=== PATIENT | male | born 1945 | race Caucasian/White ===

== ENCOUNTER 2019-07-08 18:38 | Observation (INO) ==
[2019-07-08] MEDS ORDERED: ALUMINUM/MAGNESIUM SUSP 30 ML UDC PO STA (18:51)
[2019-07-08] MEDS ORDERED: ASPIRIN CHEW 324 MG PO STA (18:51)
--- NOTE | 2019-07-08 19:30 | XRay Report ---
XR chest 1V portable CLINICAL HISTORY: Chest pain. COMPARISON STUDY: Chest radiograph August 05, 2010. FINDINGS: Mild elevation of the right hemidiaphragm is noted. There is no pneumothorax or pleural eff usion. Note is made of moderate cardiomegaly without evidence for pulmonary edema. A chondroid lesion within the proximal shaft of the right humerus is partially imaged on this exam but statistically re flects an enchondroma. IMPRESSION: 1. No acute findings. 2. Moderate cardiomegaly. ACT 112: Negative or not required by law. Electronically signed by: Afshin Murray M.D. 07/08/2019 7:29 PM
[2019-07-08 19:35] LABS: Basophils # (auto) 0.05 K/uL (0-0.2); Basophils % (auto) 0.9 %; Eosinophils # (auto) 0.29 K/uL (0-0.5); Hematocrit (blood only) 44.6 % (42-52); Lymphocytes % (auto) 22.5 %; Mean Corpuscular Hemoglobin 27.1 pg (25-34); Mean Corpuscular Hgb Conc 33.6 g/dL (32-36); Mean Corpuscular Volume 80.5 fL (80-100); Mean Platelet Volume 10.2 fL (7.4-10.4); Monocytes # (auto) 0.37 K/uL (0.11-0.59); Monocytes % (auto) 6.4 %; Neutrophils # (auto) 3.76 K/uL (1.4-6.5); Neutrophils % (auto) 65.2 %; Platelet Count 213 K/uL (130-400); RDW Coefficient of Variation 14.2 % (11.5-14.5); RDW Standard Deviation 41.7 fL (36.4-46.3); Red Blood Count 5.54 M/uL (4.7-6.1); White Blood Count 5.77 K/uL (4.8-10.8)
[2019-07-08 19:46] LABS: INR 2.7 (0.9-1.1); Partial Thromboplastin Ratio 1.4; Partial Thromboplastin Time 37.1 Seconds (21.0-31.0); Prothrombin Time 25.8 Seconds (9.0-12.0)
[2019-07-08 19:53] LABS: Alanine Aminotransferase 25 U/L (12-78); Albumin Level 3.9 gm/dl (3.4-5.0); Aspartate Aminotransferase 24 U/L (15-37); BUN Creatinine Ratio 19.5 (10-20); Blood Urea Nitrogen 22 mg/dl (7-18); Carbon Dioxide 27 mmol/L (21-32); Chloride 106 mmol/L (98-107); Creatinine Clr Calc Pharmacy 61.5 ml/min; Est GFR (African American) 74.8; Est GFR (Non-African American) 64.6; Glucose 92 mg/dl (70-99); Lipase 91 U/L (73-393); Potassium 3.7 mmol/L (3.5-5.1); Sodium 139 mmol/L (136-145)
[2019-07-08 19:58] LABS: Albumin Globulin Ratio 1.1 (0.9-2); Alkaline Phosphatase 52 U/L (45-117); Bilirubin,Total 0.7 mg/dl (0.2-1); Globulin 3.6 gm/dl (2.5-4.0); Total Protein 7.5 gm/dl (6.4-8.2); Troponin I < 0.015 ng/ml (0-0.045)
[2019-07-08 20:12] LABS: Appearance Urine Clear (Clear); Bilirubin Urine Negative (Negative); Blood Urine Negative (Negative); Color Urine Yellow; Glucose Urine UA Negative (Negative); Ketones Urine Negative (Negative); Leukocyte Esterase Urine Negative (Negative); Nitrite Urine Negative (Negative); Protein Urine Negative (Negative); Specific Gravity Urine 1.006 (1.000-1.030); Urobilinogen Urine Negative (Negative); pH Urine 7.5 (4.5-7.5)
[2019-07-08] MEDS ORDERED: PHYTONADIONE 5 MG TAB PO STA ×2 (20:28→20:33)
[2019-07-08] MEDS ORDERED: METOPROLOL TARTRATE 1 MG/ML VIAL IV STA (20:33)
--- NOTE | 2019-07-08 20:35 | Emergency Department Note ---
Entered by Carolyn Mcclendon acting as a scribe for Shane Chiang DO History of Present Illness General Chief complaint: Chest Pain Stated complaint: HEADACHE, CHEST PAIN- CARDIAC HX Time Seen by Provider: 07/08/19 18:46 Source: patient History of Present Illness Provider complaint: chest pain Onset (ago): hour(s) 3 Location: chest (mid) Pain Consistency: + intermittent Maximum Pain Intensity: 1 Quality: + other (pressure) Associated symptoms: + headaches, + nausea/vomiting (+nausea, -vomiting) and + other (-neck pain); no cough and no shortness of breath Treatments prior to arrival: other (Coumadin) The patient is a 73 year old male who presents to the Emergency Room with complaints of mid chest pain for the past 3 hours. He notes that was not doing anything when the pain started. He reports that he has a headache. He mentions that he has nausea. He denies any vomiting, coughing, or shortness of breath. He reports that he took Coumadin prior to arrival. The patient reports that his pain is intermittent and does not have it currently. He mention that the pain feels like a pressure. He denies any neck pain. He denies past MIs. He reports that he had a stress test last week. He reports that he has a history of a heart catheterization. Home Medications Home Medications Medication Instructions Recorded Confirmed Type acetaminophen [Tylenol Extra 1,000 mg PO Q6H PRN 07/08/19 07/08/19 History Strength] ezetimibe [Zetia] 10 mg PO DAILY 07/08/19 07/08/19 History hydrochlorothiazide 12.5 mg PO DAILY 07/08/19 07/08/19 History warfarin 5 mg PO Q OTHER DAY 07/08/19 07/08/19 History warfarin 7.5 mg PO Q OTHER DAY 07/08/19 07/08/19 History Allergies Allergy/AdvReac Type Severity Reaction Status Date / Time ibuprofen Allergy . Unverified 07/08/19 20:53 Past Med/Surg History Medical History No significant medical problems Social History Feels Safe at Home: Yes Smoking Status: Current every day smoker Review of Systems See HPI for pertinent positives & negatives. and A total of 10 systems reviewed and were otherwise negative Physical Exam Vital Signs Vital Signs - 24 hr 07/08/19 18:40 07/08/19 20:52 07/08/19 21:06 Temperature 36.8 C Temperature Source Oral Pulse Rate 90 Pulse Rate [Right Finger] 66 Respiratory Rate 20 20 Respiratory Depth Normal Blood Pressure 204/88 H Blood Pressure [Right Arm] 169/60 H Blood Pressure Mean 126 Blood Pressure Mean [Right Arm] 96 Pulse Oximetry 98 95 95 Oxygen Delivery Method Room Air Room Air Room Air Sepsis Recent Fever Within 48 Hours No Sepsis New/Unexplained Change in Mental Status No Sepsis Action Taken by Nursing No Action Required GENERAL: Patient is awake, alert, and in no acute distress.Patient is resting comfortably and showing no signs of anxiety EYES: The conjunctivae are clear. The pupils are round and reactive. EARS, NOSE, MOUTH AND THROAT: The nose is without any evidence of any deformity. Mucous membranes are moist.Tongue is midline NECK: The neck is nontender and supple. RESPIRATORY: Normal respiratory effort is noted. There is no evidence of wheezing rhonchi or rales to auscultation. CARDIOVASCULAR: Regular rate and rhythm noted. Systolic murmur. There no rubs or gallops normal S1 normal S2 GASTROINTESTINAL: The abdomen is soft. Bowel sounds are present in all quadrants. Abdomen is nontender. MUSCULOSKELETAL/EXTREMITIES: There is no evidence of gross deformity. Full range of motion is noted in the hips and shoulders. SKIN: There is no obvious evidence of any rash. There are no petechiae, pallor or cyanosis noted. NEUROLOGIC: Patient is awake alert and oriented x3. Course Course 184: The patient was evaluated in room C12A, and a complete history and physical examination were performed. 2026: I discussed the patient's case with Dr. Obrien- [facility] Cardiology, he recommends that the patient have partial Coumadin reversal and admission with catheterization within the next 24 hours. 2032: I reviewed the patient's case with Dr. Marin- [facility] Hospitalist. He will evaluate the patient for further management. Administered Medications Discontinued Medications Al Hydrox/Mg Hydrox/Simethicone (Maalox) 30 ml PO NOW STA Stop: 07/08/19 18:52 Last Admin: 07/08/19 19:46 Dose: 30 ml Documented by: [id number] Aspirin (Aspirin) 324 mg PO NOW STA Stop: 07/08/19 18:52 Last Admin: 07/08/19 19:46 Dose: 324 mg Documented by: [id number] Metoprolol Tartrate (Lopressor) 5 mg IV NOW STA Stop: 07/08/19 20:34 Last Admin: 07/08/19 20:52 Dose: 5 mg Documented by: [id number] Phytonadione (Mephyton) 2.5 mg PO NOW STA Stop: 07/08/19 20:29 Last Admin: 07/08/19 20:51 Dose: 5 mg Documented by: [id number] Phytonadione (Mephyton) 2.5 mg PO NOW STA Stop: 07/08/19 20:34 Last Admin: 07/08/19 20:52 Dose: Not Given Documented by: [id number] Medical Decision Making Differential Diagnosis Differential diagnosis: Etiologies such as cardiac ischemia, aortic dissection, pulmonary embolism, pneumonia, pneumothorax, musculoskeletal, infections, pericarditis, myocarditis, esophageal rupture, gastrointestinal, as well as others were entertained Medical Records Attestation: I reviewed the patient's medical records. Home Medications Current Medication List: was personally reviewed by me Laboratory Data Attestation: I reviewed the patient's lab results. Result diagrams: 07/08/19 19:25 07/08/19 19:25 Lab Results 07/08/19 07/08/19 07/08/19 Range/Units 19:25 19:25 19:25 WBC 5.77 (4.8-10.8) K/uL RBC 5.54 (4.7-6.1) M/uL Hgb 15.0 (14.0-18.0) g/dL Hct 44.6 (42-52) % MCV 80.5 (80-100) fL MCH 27.1 (25-34) pg MCHC 33.6 (32-36) g/dL RDW Std Deviation 41.7 (36.4-46.3) fL RDW Coeff of Stephanie 14.2 (11.5-14.5) % Plt Count 213 (130-400) K/uL MPV 10.2 (7.4-10.4) fL Immature Gran % (Auto) 0.0 % Neut % (Auto) 65.2 % Lymph % (Auto) 22.5 % Woodson % (Auto) 6.4 % Eos % (Auto) 5.0 % Baso % (Auto) 0.9 % Immature Gran # (Auto) 0.00 (0.00-0.02) K/uL Neut # (Auto) 3.76 (1.4-6.5) K/uL Lymph # (Auto) 1.30 (1.2-3.4) K/uL Woodson # (Auto) 0.37 (0.11-0.59) K/uL Eos # (Auto) 0.29 (0-0.5) K/uL Baso # (Auto) 0.05 (0-0.2) K/uL PT 25.8 H (9.0-12.0) Seconds INR 2.7 H (0.9-1.1) APTT 37.1 H (21.0-31.0) Seconds PTT Ratio 1.4 Sodium 139 (136-145) mmol/L Potassium 3.7 (3.5-5.1) mmol/L Chloride 106 (98-107) mmol/L Carbon Dioxide 27 (21-32) mmol/L Anion Gap 6.0 (3-11) BUN 22 H (7-18) mg/dl Creatinine 1.13 (0.6-1.4) mg/dl Est Cr Clr Drug Dosing 61.5 ml/min Est GFR ( Amer) 74.8 Est GFR (Non-Af Amer) 64.6 BUN/Creatinine Ratio 19.5 (10-20) Glucose 92 (70-99) mg/dl Calcium 9.0 (8.5-10.1) mg/dl Total Bilirubin 0.7 (0.2-1) mg/dl AST 24 (15-37) U/L ALT 25 (12-78) U/L Alkaline Phosphatase 52 (45-117) U/L Troponin I < 0.015 (0-0.045) ng/ml Total Protein 7.5 (6.4-8.2) gm/dl Albumin 3.9 (3.4-5.0) gm/dl Globulin 3.6 (2.5-4.0) gm/dl Albumin/Globulin Ratio 1.1 (0.9-2) Lipase 91 (73-393) U/L Urine Color Urine Appearance (Clear) Urine pH (4.5-7.5) Ur Specific Narberth (1.000-1.030) Urine Protein (Negative) Urine Glucose (UA) (Negative) Urine Ketones (Negative) Urine Blood (Negative) Urine Nitrite (Negative) Urine Bilirubin (Negative) Urine Urobilinogen (Negative) Ur Leukocyte Esterase (Negative) 07/08/19 Range/Units 20:04 WBC (4.8-10.8) K/uL RBC (4.7-6.1) M/uL Hgb (14.0-18.0) g/dL Hct (42-52) % MCV (80-100) fL MCH (25-34) pg MCHC (32-36) g/dL RDW Std Deviation (36.4-46.3) fL RDW Coeff of Stephanie (11.5-14.5) % Plt Count (130-400) K/uL MPV (7.4-10.4) fL Immature Gran % (Auto) % Neut % (Auto) % Lymph % (Auto) % Woodson % (Auto) % Eos % (Auto) % Baso % (Auto) % Immature Gran # (Auto) (0.00-0.02) K/uL Neut # (Auto) (1.4-6.5) K/uL Lymph # (Auto) (1.2-3.4) K/uL Woodson # (Auto) (0.11-0.59) K/uL Eos # (Auto) (0-0.5) K/uL Baso # (Auto) (0-0.2) K/uL PT (9.0-12.0) Seconds INR (0.9-1.1) APTT (21.0-31.0) Seconds PTT Ratio Sodium (136-145) mmol/L Potassium (3.5-5.1) mmol/L Chloride (98-107) mmol/L Carbon Dioxide (21-32) mmol/L Anion Gap (3-11) BUN (7-18) mg/dl Creatinine (0.6-1.4) mg/dl Est Cr Clr Drug Dosing ml/min Est GFR ( Amer) Est GFR (Non-Af Amer) BUN/Creatinine Ratio (10-20) Glucose (70-99) mg/dl Calcium (8.5-10.1) mg/dl Total Bilirubin (0.2-1) mg/dl AST (15-37) U/L ALT (12-78) U/L Alkaline Phosphatase (45-117) U/L Troponin I (0-0.045) ng/ml Total Protein (6.4-8.2) gm/dl Albumin (3.4-5.0) gm/dl Globulin (2.5-4.0) gm/dl Albumin/Globulin Ratio (0.9-2) Lipase (73-393) U/L Urine Color Yellow Urine Appearance Clear (Clear) Urine pH 7.5 (4.5-7.5) Ur Specific Narberth 1.006 (1.000-1.030) Urine Protein Negative (Negative) Urine Glucose (UA) Negative (Negative) Urine Ketones Negative (Negative) Urine Blood Negative (Negative) Urine Nitrite Negative (Negative) Urine Bilirubin Negative (Negative) Urine Urobilinogen Negative (Negative) Ur Leukocyte Esterase Negative (Negative) Imaging Data Radiologist's Impression: Radiology results as stated below per my review and the radiologist's interpretation: XR chest 1V portable CLINICAL HISTORY: Chest pain. COMPARISON STUDY: Chest radiograph August 05, 2010. FINDINGS: Mild elevation of the right hemidiaphragm is noted. There is no pneumothorax or pleural effusion. Note is made of moderate cardiomegaly without evidence for pulmonary edema. A chondroid lesion within the proximal shaft of the right humerus is partially imaged on this exam but statistically reflects an enchondroma. IMPRESSION: 1. No acute findings. 2. Moderate cardiomegaly. ACT 112: Negative or not required by law. Electronically signed by: Afshin Murray M.D. 07/08/2019 7:29 PM ECG Data Attestation: I personally reviewed and interpreted this ECG as follows: Indication: + chest pain Rate (beats per minute): 86 Rhythm: + sinus rhythm ECG Intervals/blocks: + First degree AV block ECG ST segments: + ST depression (lateral ) ECG Findings: + LVH (voltage criteria) Comparison ECG Date: from (08/05/10) Change: no significant change Blood Pressure Blood Pressure Findings: Elevated blood pressure Blood Pressure Disposition: further management by hospitalist NORBERT Emerson The patient is a 73-year-old male who presented to the emergency department for an evaluation of chest pain. The patient had left-sided chest pain which she described as a pressure. The pain was nonexertional in nature. The patient was found to have EKG changes on his initial twelve-lead which appear to be consistent with his previous EKG. The ST segment depression does appear somewha t increased and his blood pressure was elevated in the emergency department. Patient was treated with aspirin Lopressor and vitamin K in the emergency department. I discussed the patient's laboratory and radiographic studies with him. He was feeling much better on subsequent reevaluation. I discussed his case with his primary cardiology group. Given the patient's ongoing symptoms and the fact that he is scheduled for an upcoming cardiac catheterization they did recommend that we keep the patient for further work-up including serial troponins. I discussed this case with the on-call [facility] hospitalist group. They have agreed to evaluate the patient in the emergency department for further management and disposition. I discussed this with the patient and he was agreeable with the plan at this time. Impression & Plan Chest pain, Abnormal EKG, Aortic stenosis Discharge Plan Visit Data *Final* Discharge Date/Time: 07/08/19 22:14 Chief Complaint: Chest Pain Stated Complaint: HEADACHE, CHEST PAIN- CARDIAC HX ED Provider: Shane Chiang Discharge Problem: Chest pain, Abnormal EKG, Aortic stenosis Patient Disposition: Admitted As Inpatient Discharge Instructions Interventions: ED Discharge Assessment Last Done: 07/08/19 22:14 Discharge Problem: Chest pain Qualifiers: Chest pain type: unspecified Qualified Code(s): R07.9 - Chest pain, unspecified Aortic stenosis Qualifiers: Cardiac valve disease etiology: etiology unspecified Qualified Code(s): I35.0 - Nonrheumatic aortic (valve) stenosis The scribe's documentation has been prepared under my direction and personally reviewed by me in its entirety. I confirm that the note above accurately reflects all work, treatment, procedures, and medical decision making performed by me.
[2019-07-08] MEDS ORDERED: ACETAMINOPHEN 325 MG TAB PO PRN (22:40)
[2019-07-08] MEDS ORDERED: NITROGLYCERIN SL 0.4 MG/TAB TAB SL PRN (22:40)
[2019-07-08] MEDS ORDERED: ONDANSETRON INJ 2 MG/ML 2 ML VIAL IV PRN (22:40)
[2019-07-08] MEDS ORDERED: POLYETHYLENE (MIRALAX) 17 GM PACK PO PRN (22:40)
--- NOTE | 2019-07-09 02:31 | History and Physical Report ---
DATE OF ADMISSION: 07/08/2019 CHIEF COMPLAINT: Chest pain. HISTORY OF PRESENT ILLNESS: This is a 73-year-old male with past medical history significant for hyperlipidemia, statin intolerance, hypertension, history of TIA, history of rheumatic heart disease with borderline severe aortic stenosis, moderate aortic regurgitation, moderate mitral stenosis on Coumadin, presents with chest pain. The patient had a recent echocardiogram with normal EF. His left heart catheterization in August 2011 showed mild nonobstructive CAD, recent Lexiscan nuclear stress test on 12/08/2018 was unremarkable. There is plan for elective cardiac catheterization for possible valve surgery. The patient states since coming from the work today around 4-4:30 p.m., he noticed mild chest discomfort, in the left side of the chest, pressure like feeling, nonradiating, not associated with any activity. No sweating. Has some mild pressure in the head, no nausea, no sweating, no shortness of breath. The patient sates currently pain is resolved. EKG, no acute changes and troponins negative, but because of his underlying valvular disease, the plan to get admitted and cardiac catheterization in a.m. Currently resting comfortably and hemodynamically stable. Denies any blurred vision, no earache, no runny nose, no sore throat. Appetite is okay. No difficulty swallowing. Sleeps okay. No orthopnea, no shortness of breath, no nausea, no abdominal pain. Normal bowel and bladder movements. No hematuria, no burning micturition, no melena, no hematochezia, no swelling in the legs, no rash. Otherwise, he is active and ambulates and climbs steps okay. Lives with his . ALLERGIES: IBUPROFEN. PAST MEDICAL HISTORY: As mentioned above. PAST SURGICAL HISTORY: Left heart catheterization, colonoscopy, incision of anal sphincter, maxillary sinus and nasal endoscopy. MEDICATIONS: Coumadin 7.5 mg on Sundays and and 5 mg rest of the days, Zetia 10 mg p.o. daily, Zantac 300 mg p.o. at bedtime, hydrochlorothiazide 12.5 mg p.o. daily. FAMILY HISTORY: Significant for father of [place] at age 54, mother good health at age of 84. Sister of [place] at age of 63. SOCIAL HISTORY: and lives with his . Smokes 5 cigarettes a day. Alcohol 1-2 times a month. No drug use. REVIEW OF SYMPTOMS: As per HPI. Rest of review of symptoms negative. PHYSICAL EXAMINATION: GENERAL: The patient is of moderate build, not in acute distress. VITAL SIGNS: Temperature 36.8, pulse 66, respiratory rate 20, blood pressure 116/60, oxygen 95% room air. HEENT: No pallor, no icterus. Pupils equal, round, reactive to light. NECK: No JVD, no neck mass, no carotid bruit. CARDIOVASCULAR: S1, S2 heard, regular rate and rhythm, no murmur, no gallop. RESPIRATORY SYSTEM: Normal AP diameter. No accessory muscle use. No wheezing, no crackles. ABDOMEN: Soft, bowel sounds present, nontender. No distention. CENTRAL NERVOUS SYSTEM: Cranial nerves II-XII grossly intact. Nonfocal. EXTREMITIES: No edema, no erythema. LABORATORY DATA: WBC 5.7, hemoglobin 15, hematocrit 44.6, platelets 213, PT 37.1, INR 2.7, APTT 37.1. Sodium 137 , potassium 3.7, chloride 106, bicarbonate 27, BUN 22, creatinine 1.13, serum glucose 92, calcium 9, total bilirubin 0.7, AST 24, ALT 25, alkaline phosphatase is 52. Troponin I less than 0.015. Lipase 91. Chest x-ray: No acute findings, moderate cardiomegaly. EKG: Sinus rhythm with first degree AV block at a rate of 86. Left ventricular hypertrophy,no significant change from previous EKG. ASSESSMENT AND PLAN: This is a 73-year-old male who presents with chest pain. 1. Chest pain, rule out acute coronary syndrome. Initial workup is negative. Will admit to tele floor. Serial cardiac enzymes. There is a planned for elective cardiac catheterization for his valvular heart disease. Plan to do cardiac catheterization in a.m. We will keep him n.p.o. after midnight. Cardiology consult in a.m. for cardiac catheterization. 2. Rheumatic heart disease with borderline severe aortic stenosis, moderate aortic regurgitation, moderate mitral stenosis. We will monitor him for volume overload. Currently stable. 3. Hypertensive urgency could be situational. Continue on hydrochlorothiazide, placed on IV Lopressor. Monitor the blood pressure. 4. History of questionable paroxysmal atrial fibrillation and history of transient ischemic attack in the past, on Coumadin. His INR is 2.7, given vitamin K in ER for cardiac catheterization in a.m. Will follow INR. 5. History of mild ascending thoracic aneurysm, needs followup. 6. History of tobacco abuse, needs counseling. 7. Hyperlipidemia, statin intolerance, on Zetia. 8. Deep venous thrombosis prophylaxis, sequential compression devices for now. 9. Disposition: Admit to tele floor. Expect to discharge home and follow with family doctor. Level 1 full code. MTDD
[2019-07-09 05:06] LABS: INR 2.8 (0.9-1.1); Prothrombin Time 26.4 Seconds (9.0-12.0)
[2019-07-09] MEDS ORDERED: PHYTONADIONE 2.5 MG in SODIUM CHLORIDE 0.9% 50 ML IV ONE (05:57)
[2019-07-09] MEDS ORDERED: EZETIMIBE 10 MG TABLET PO SCH (09:00)
[2019-07-09] MEDS ORDERED: hydroCHLOROthiazide 25 MG TAB PO SCH (09:00)
--- NOTE | 2019-07-09 09:03 | Cardiology Consultation ---
Date of Consultation July 09, 2019 Assessment & Plan (1) Rheumatic aortic stenosis with insufficiency: (2) Rheumatic mitral and aortic valve obstruction: (3) Anxiety about health: (4) Chest pain: (5) HTN (hypertension): (6) Paroxysmal atrial fibrillation: 73-year-old patient with history of rheumatic aortic and mitral valve disease with most recent echocardiogram demonstrating aortic stenosis. Patient presents to the hospital with atypical chest discomfort, elevated blood pressu re, and headache. Notes significant stress/anxiety related to upcoming cardiac catheterization. No evidence of acute coronary syndrome or symptomatic dysrhythmia overnight. Currently patient is asymptomatic with mildly elevated resting blood pressure, however, continues to note significant stress associated with his health issues. And temporary prescription of benzodiazepines to aid with anxiety management. His INR remains 2.8 despite treatment with vitamin K. Recommend holding Coumadin at this time. Cardiac catheterization initially scheduled for July 14, however, I will reschedule for 07/12/2019. Risks of procedure reviewed. Plan for CT surgery evaluation/consultation pending results of cardiac catheterization. Discussed discharge to home versus continued observation over the weekend pending cardiac catheterization Friday. Patient prefers to return home with cardiac catheterization on Friday as an outpatient. Agreeable to return to the hospital with any recurrent symptoms. History of Present Illness Reason for Consultation: Chest pain, valvular heart disease Requesting Physician: Dr. Marin Attending Physician: Renetta Leiva MD History of Present Illness 73-year-old patient presented to the emergency department with chest discomfort. History of rheumatic heart disease with recent echocardiogram demonstrating severe aortic insufficiency, severe aortic stenosis, moderate mitral stenosis, and mild pulmonary hypertension. Patient scheduled for left and right heart catheterization next week. 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 On his ride home he became worried about his upcoming procedure developed a headache and a feeling of fogginess. Per direction of his family he came to the emergenc y department. Noted to be markedly hypertensive in the ER with admitted anxiety. Cardiac enzymes unremarkable without ischemic ECG changes. Patient was given 5 mg of oral vitamin K in anticipation of possible cardiac catheterization today. Unfortunately his INR remains elevated. He rested comfortably over night with mild improvement of blood pressure. This morning again he is feeling anxious without chest pain or headache. No dysrhythmias on telemetry. Denies orthopnea, PND, palpitations, lightheadedness, dizziness, syncope, or near syncope. 2D echocardiogram results 06/25/2019: The examination is adequate to evaluate the referral indication. The left ventricular cavity size is normal. The LV wall thickness is moderately increased (concentric). The left ventricular wall motion is normal. Qualitative LV ejection Fraction = 60%. The left ventricular diastolic function is mildly abnormal (grade I). The left atrium is severely enlarged (>48 ml/m^2,). The aortic valve has three leaflets. The aortic valve is mildly calcified. Severe aortic valve stenosis is assumed to be present however, the gradients across the valve and the calculations of valve area maybe impacted by the severe AI. Peak instantaneous pressure gradient across the aoric valve is approximately 65 mmHg, with mean gradient 37 mmHg. Calculated aortic valve orifice area is approximately 1 cm2. Aortic valvular insufficiency is present, which appears to be severe. The aortic root is normal sized. The proximal ascending thoracic aorta is mildly enlarged. The estimated pulmonary artery systolic pressure is 46mm Hg. There is moderate mitral annular calcification. The mitral valve leaflets thickness is moderately increased. The mitral valve leaflets are moderately calcified. The mitral valve leaflet mobility is moderately reduced. Moderate mitral stenosis is present. Mild mitral regurgitation is present. Compared to previous study dated 12/29/2018, severity of aortic valve stenosis has progressed, and is now severe. Estimated pulmonary artery systolic pressure has increased from 36 to 46 mmHg. Diameter of ascending aorta is stable. 2D echocardiogram report 12/2018: The qualitative LV ejection fraction is 60-64% (normal). The LV wall thickness is moderately increased (concentric). The left atrium is severely enlarged. The aortic valve is mildly calcified. Moderate to borderline severe aortic stenosis is present. The mitral valve abnormalities are due to rheumatic heart disease. Aortic regurgitation is present, possibly severe but not quantitated. Moderate mitral stenosis is present. Mild mitral regurgitation is present. Mild tricuspid regurgitation is present. The estimated pulmonary artery systolic pressure is 36mm Hg. Compared to last available study changes are noted as follows: Aortic valve systolic gradients have increased. Lexiscan nuclear stress test report December 08, 2018: Myocardial perfusion imaging is normal. Overall left ventricular systolic function was normal without regional wall motion abnormalities. The left ventricular ejection fraction was 63%. There are no prior studies available for comparison. Allergies Allergy/AdvReac Type Severity Reaction Status Date / Time ibuprofen Allergy . 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 Surgical History S/P cardiac catheterization Social History Preferred Language: [place] Communication Ability: Effective Water Proofer Required: No Beliefs That Will Affect Care: None Current Living Situation: Family Other Information That Helps Us Care for You: No Feels Safe at Home: Yes Safety Concerns: Feels Safe At This Time Smoking Status: Current every day smoker Tobacco Type: cigarettes ; Tobacco Cessation Education Requested by Patient: No Hx Alcohol Use: No Hx Substance Use: No Review of Systems Review of Systems: All systems reviewed & are unremarkable except as noted in HPI & below Physical Exam Constitutional: well developed, well nourished and average body habitus; no acute distress ENMT: Ears: no hearing impairment Respiratory: normal respiratory effort, lungs clear to auscultation Cardiovascular: Heart Sounds: normal S1, normal S2 (Diminished S2) and + murmur (3/6 high-pitched late peaking systolic ejection murmur heard best at the right second intercostal space however audible throughout the precordium. 2/6 diastolic murmur heard best at the left sternal border.) Vessels: + carotid bruit, femoral pulses present and radial pulses present; no JVD Extremities: no pedal edema and no edema Gastrointestinal (Abdomen): Inspection/Auscultation: abdomen normal to inspection and normal bowel sounds; abdomen not distended Percussion/Palpation: abdomen soft; abdomen nontender, no guarding and abdomen not rigid Musculoskeletal: no cyanosis or clubbing, extremities motor strength 5/5 Skin: no rashes, warm and dry Neurologic: CN's II-XI intact bilaterally and moves all extremities; no focal motor deficits Speech / Cognition: normal speech Results & Data Vital Signs (Past 12 Hours) Vital Signs Temp Pulse Resp BP BP Pulse Ox 07/09/19 07:56 36.5 C 57 L 19 176/70 H 98 07/09/19 03:15 36.5 C 54 L 18 147/63 H 97 07/08/19 23:49 60 156/65 H 07/08/19 22:30 36.4 C L 60 18 185/67 H 98 07/08/19 21:06 95 (1) Chest pain Chest pain type: unspecified Qualified Code(s): R07.9 - Chest pain, unspecified (2) HTN (hypertension) Hypertension type: essential hypertension Qualified Code(s): I10 - Essential (primary) hypertension
[2019-07-09] MEDS ORDERED: LORazepam 0.5 MG TAB PO PRN (09:52)
[2019-07-09] MEDS ORDERED: LORazepam 0.5 MG TAB PO ONE (10:15)
--- NOTE | 2019-07-09 11:02 | Hospitalist Progress Note ---
Date of Service July 09, 2019 Assessment & Plan (1) Chest pain: Admitted with chest pain, dyspnea on exertion, symptom has resolved completely, serial cardiac markers negative, appreciate input from cardiology Patient's INR remains elevated 2.8 in spite of given p.o. vitamin K in the ER Elective cardiac cath canceled today, patient is stable to be discharged home Scheduled for cardiac catheter [facility] on 07/12/2019 Patient is asked not to take Coumadin till cardiac cath on Friday Hypertension: BP was elevated, earlier possible secondary to anxiety induced Patient's home medication hydrochlorothiazide resumed Repeat blood pressure improved SBP in 140s, Stable to be discharged home today (2) Rheumatic aortic stenosis with insufficiency: History of rheumatic heart disease with recent echocardiogram demonstrating severe aortic insufficiency, severe aortic stenosis, moderate mitral stenosis, and mild pulmonary hypertension: Noted in recent echocardiogram on 06/25/2019 Patient was scheduled for left and right heart catheterization next week: 07/14/2019 Admitted with dyspnea on exertion, Symptom has resolved, Appreciate input from cardiology, Able to be discharged home, no change in medication, Coumadin will be kept on hold till cardiac cath procedure on Friday (3) Rheumatic mitral and aortic valve obstruction: Discussion as above (4) Paroxysmal atrial fibrillation: With prior history of TIA Has been on Coumadin, INR therapeutic 2.7, given vitamin K in the ER for cardiac cath today, Repeat INR 2.8, Patient will be discharged home today, with scheduled cardiac cath on 07/12/2019 Patient is asked not to take Coumadin till cardiac cath (5) Anxiety about health: Given low-dose Ativan by cardiology CODE STATUS: Full code DVT prophylaxis: INR therapeutic Disposition: Stable to be discharged home today Subjective No complaint of chest pain, no shortness of breath, no dyspnea on exertion Vital stable, no hypoxia, no fever or chills Evaluated by cardiology earlier today, Cardiac cath scheduled for Friday, July 12, 2019 at [facility] patient will be discharged home today Review of Systems Review of Systems: All systems reviewed & are unremarkable except as noted in HPI & below Cardiovascular: no chest pain, no chest pain at rest, no chest pain with activity, no dyspnea, no orthopnea, no lightheadedness, no syncope and no edema Physical Exam Constitutional: WD/WN, vitals as above no acute distress Eyes: PERRL, conjunctivae normal, anicteric sclerae Neck: trachea midline, no thyromegaly Respiratory: normal respiratory effort, lungs clear to auscultation Cardiovascular: RRR, no murmur, no edema Gastrointestinal (Abdomen): normal bowel sounds, soft, nontender, no hepatosplenomegaly Musculoskeletal: no cyanosis or clubbing, extremities motor strength 5/5 Skin: no rashes, warm and dry Neurologic: PERRL, EOMI, accommodation nl, no face palsy, no dysarthria Psychiatric: A+Ox3, euthymic affect Results & Data Vital Signs (Past 12 Hours) Vital Signs Temp Pulse Resp BP BP Pulse Ox 07/09/19 07:56 36.5 C 57 L 19 176/70 H 98 07/09/19 03:15 36.5 C 54 L 18 147/63 H 97 07/08/19 23:49 60 156/65 H (1) Chest pain Chest pain type: unspecified Qualified Code(s): R07.9 - Chest pain, unspecified
--- NOTE | 2019-07-09 12:30 | Electrocardiogram Report ---
Test Reason : Blood Pressure : / mmHG Vent. Rate : 086 BPM Atrial Rate : 086 BPM P-R Int : 258 ms QRS Dur : 104 ms QT Int : 390 ms P-R-T Axes : 066 -09 081 degrees QTc Int : 466 ms Poor data quality, interpretation may be adversely affected Sinus rhythm with 1st degree A-V block Left ventricular hypertrophy with repolarization abnormality Cannot rule out Septal infarct , age undetermined Abnormal ECG When compared with ECG of 05-AUG-2010 17:55, No significant change was found Confirmed by Shane Adames ([id number]) on 07/09/2019 12:30:23 PM Referred By: REFERRED SELF Confirmed By:Shane Adames
--- NOTE | 2019-07-09 12:39 | Electrocardiogram Report ---
Test Reason : Blood Pressure : / mmHG Vent. Rate : 055 BPM Atrial Rate : 055 BPM P-R Int : 260 ms QRS Dur : 102 ms QT Int : 460 ms P-R-T Axes : 057 003 032 degrees QTc Int : 440 ms Sinus bradycardia with 1st degree A-V block Possible Left atrial enlargement Left ventricular hypertrophy with repolarization abnormality Cannot rule out Septal infarct (cited on or before 08-JUL-2019) Abnormal ECG When compared with ECG of 08-JUL-2019 18:53, (unconfirmed) Vent. rate has decreased BY 31 BPM T wave inversion no longer evident in Lateral leads Confirmed by Shane Adames ([id number]) on 07/09/2019 12:38:57 PM Referred By: REFERRED SELF Confirmed By:Shane Adames
--- NOTE | 2019-07-09 12:57 | Discharge Summary ---
Date of Service July 09, 2019 Admission HPI Per Admitting Provider DICTATED BY: Ryan Marin MD DATE OF ADMISSION: 07/08/2019 CHIEF COMPLAINT: Chest pain. HISTORY OF PRESENT ILLNESS: This is a 73-year-old male with past medical history significant for hyperlipidemia, statin intolerance, hypertension, history of TIA, history of rheumatic heart disease with borderline severe aortic stenosis, moderate aortic regurgitation, moderate mitral stenosis on Coumadin, presents with chest pain. The patient had a recent echocardiogram with normal EF. His left heart catheterization in August 2011 showed mild nonobstructive CAD, recent Lexiscan nuclear stress test on 12/08/2018 was unremarkable. There is plan for elective cardiac catheterization for possible valve surgery. The patient states since coming from the work today around 4-4:30 p.m., he noticed mild chest discomfort, in the left side of the chest, pressure like feeling, nonradiating, not associated with any activity. No sweating. Has some mild pressure in the head, no nausea, no sweating, no shortness of breath. The patient sates currently pain is resolved. EKG, no acute changes and troponins negative, but because of his underlying valvular disease, the plan to get admitted and cardiac catheterization in a.m. Currently resting comfortably and hemodynamically stable. Denies any blurred vision, no earache, no runny nose, no sore throat. Appetite is okay. No difficulty swallowing. Sleeps okay. No orthopnea, no shortness of breath, no nausea, no abdominal pain. Normal bowel and bladder movements. No hematuria, no burning micturition, no melena, no hematochezia, no swelling in the legs, no rash. Otherwise, he is active and ambulates and climbs steps okay. Lives with his . Principal Diagnosis CHEST PAIN -Symptom has resolved, atypical for acute coronary event Rheumatic heart disease with mitral and aortic valve stenosis Discharge Exam Constitutional WD/WN, vitals as above no acute distress Eyes PERRL, conjunctivae normal, anicteric sclerae Neck trachea midline, no thyromegaly Respiratory normal respiratory effort, lungs clear to auscultation Cardiovascular RRR, no murmur, no edema Gastrointestinal (Abdomen) normal bowel sounds, soft, nontender, no hepatosplenomegaly Musculoskeletal no cyanosis or clubbing, extremities motor strength 5/5 Skin no rashes, warm and dry Neurologic PERRL, EOMI, accommodation nl, no face palsy, no dysarthria Psychiatric A+Ox3, euthymic affect Discharge Data Allergies Allergy/AdvReac Type Severity Reaction Status Date / Time ibuprofen Allergy . Unverified 07/08/19 20:53 Consultations 07/08/19 20:36 ED Decision to Admit Stat 07/08/19 22:40 Consult Case Management - Discharge Planning Routine 07/09/19 08:00 Consult Cardiology Routine Hospital Course (1) Chest pain: Admitted with chest pain, dyspnea on exertion, symptom has resolved completely, serial cardiac markers negative, appreciate input from cardiology Patient's INR remains elevated 2.8 in spite of given p.o. vitamin K in the ER Elective cardiac cath canceled today, patient is stable to be discharged home Scheduled for cardiac catheter [facility] on 07/12/2019 Patient is asked not to take Coumadin till cardiac cath on Friday Hypertension: BP was elevated, earlier possible secondary to anxiety induced Patient's home medication hydrochlorothiazide resumed Repeat blood pressure improved SBP in 140s, Stable to be discharged home today (2) Rheumatic aortic stenosis with insufficiency: History of rheumatic heart disease with recent echocardiogram demonstrating severe aortic insufficiency, severe aortic stenosis, moderate mitral stenosis, and mild pulmonary hypertension: Noted in recent echocardiogram on 06/25/2019 Patient was scheduled for left and right heart catheterization next week: 07/14/2019 Admitted with dyspnea on exertion, Symptom has resolved, Appreciate input from cardiology, Able to be discharged home, no change in medication, Coumadin will be kept on hold till cardiac cath procedure on Friday (3) Rheumatic mitral and aortic valve obstruction: Discussion as above (4) Paroxysmal atrial fibrillation: With prior history of TIA Has been on Coumadin, INR therapeutic 2.7, given vitamin K in the ER for cardiac cath today, Repeat INR 2.8, Patient will be discharged home today, with scheduled cardiac cath on 07/12/2019 Patient is asked not to take Coumadin till cardiac cath (5) Anxiety about health: Given low-dose Ativan by cardiology CODE STATUS: Full code DVT prophylaxis: INR therapeutic Disposition: Stable to be discharged home today Total Time Total Time Spent Total Time Spent (In Minutes): Approximately 35 minutes Total Time Includes: Examination of the Patient, Discharge Planning, Medication Reconciliation and Communication With Other Providers Discharge Plan Discharge Items Patient Disposition: Home - Self-Care Reason For Visit: CHEST PAIN Discharge Diagnosis: CHEST PAIN -Symptom has resolved, atypical for acute coronary event Rheumatic heart disease with mitral and aortic valve stenosis Activity: Resume your previous activity Non-emergency contact: Primary Care Provider Call non-emergency contact if: you have any medication questions Follow-up/Referrals: Haroldo Infante MD [Primary Care Provider] - 07/16/19 8:25 am Diet: Heart Healthy Addtl Attending Provider Instructions: You are scheduled for cardiac cath at [facility] on Friday , July 12, 2019 Do not take Coumadin for scheduled cardiac cath on Friday As instructed by cardiology after cardiac cath Nothing by mouth after midnight on Thursday July 11, 2019 Pending Studies at Discharge: No Stand-Alone Forms: Call Back Authorization, [facility], Smoking Cessation Medications and DC Order Prescriptions: Continued warfarin 5 mg tablet 7.5 mg PO Q OTHER DAY RF: 0 warfarin 5 mg tablet 5 mg PO Q OTHER DAY RF: 0 hydrochlorothiazide 12.5 mg capsule 12.5 mg PO DAILY RF: 0 ezetimibe [Zetia] 10 mg tablet 10 mg PO DAILY RF: 0 acetaminophen [Tylenol Extra Strength] 500 mg Tablet 1,000 mg PO Q6H PRN (Reason: Pain) RF: 0 Discharge Orders: Discharge Order (Routine); Ordered 07/09/19 Ordered By: Renetta Leiva Admission Data Admit Date/Time: 07/08/19 21:28 Attending Provider: Renetta Leiva Admit Provider: Ryan Marin Primary Care Provider: Haroldo Infante Other Providers: Ryan Marin ; Kamari Guerrero Other Interventions: Discharge Summary Assessment (RN) Last Done: 07/09/19 12:47
== END 2019-07-09 13:31 | disposition home or self-care (01) ==
LOC: ED 18:38 → INTOOBSV 21:28 → 2S 21:28 → SUATTDRO 21:28 → 2S 22:14

== ENCOUNTER 2019-11-16 21:48 | Observation (INO) ==
[2019-11-16] MEDS ORDERED: NITROGLYCERIN 2% OINTMENT 30GM TUBE EXT STA (22:50)
[2019-11-16 23:06] LABS: Basophils # (auto) 0.07 K/uL (0-0.2); Basophils % (auto) 1.2 %; Eosinophils % (auto) 10.5 %; Hemoglobin 14.1 g/dL (14.0-18.0); Lymphocytes # (auto) 1.39 K/uL (1.2-3.4); Lymphocytes % (auto) 24.4 %; Mean Corpuscular Hemoglobin 27.3 pg (25-34); Mean Corpuscular Hgb Conc 33.6 g/dL (32-36); Mean Corpuscular Volume 81.4 fL (80-100); Mean Platelet Volume 10.1 fL (7.4-10.4); Monocytes # (auto) 0.51 K/uL (0.11-0.59); Neutrophils # (auto) 3.12 K/uL (1.4-6.5); Neutrophils % (auto) 54.9 %; Platelet Count 224 K/uL (130-400); RDW Coefficient of Variation 14.4 % (11.5-14.5); RDW Standard Deviation 42.7 fL (36.4-46.3); Red Blood Count 5.16 M/uL (4.7-6.1); White Blood Count 5.69 K/uL (4.8-10.8)
[2019-11-16 23:24] LABS: Alanine Aminotransferase 33 U/L (12-78); Albumin Level 3.8 gm/dl (3.4-5.0); Aspartate Aminotransferase 31 U/L (15-37); BUN Creatinine Ratio 19.8 (10-20); Blood Urea Nitrogen 29 mg/dl (7-18); Carbon Dioxide 29 mmol/L (21-32); Chloride 103 mmol/L (98-107); Creatinine Clr Calc Pharmacy 48.5 ml/min; Est GFR (African American) 55.8; Est GFR (Non-African American) 48.2; Glucose 94 mg/dl (70-99); Sodium 139 mmol/L (136-145)
[2019-11-16 23:27] LABS: INR 4.1 (0.9-1.1); Partial Thromboplastin Ratio 1.8; Prothrombin Time 39.8 Seconds (9.0-12.0)
[2019-11-16 23:28] LABS: Alkaline Phosphatase 60 U/L (45-117); Bilirubin,Total 0.5 mg/dl (0.2-1); Globulin 3.7 gm/dl (2.5-4.0); Total Protein 7.5 gm/dl (6.4-8.2); Troponin I < 0.015 ng/ml (0-0.045)
[2019-11-16 23:33] LABS: Partial Thromboplastin Time 51.4 Seconds (21.0-31.0)
--- NOTE | 2019-11-16 23:37 | Emergency Department Note ---
History of Present Illness General Chief complaint: Hypertension Stated complaint: HYPERTENSION, SWOLLEN FEET Time Seen by Provider: 11/16/19 22:40 Source: patient History of Present Illness Provider complaint: Chest discomfort Onset (ago): hour(s) Location: chest Radiation: non-radiation Severity: mild Pain Consistency: + now resolved Maximum Pain Intensity: 3 Current Pain Intensity: 0 Quality: + burning Associated symptoms: + shortness of breath; no cough and no fever/chills This is a 74-year-old male who presents with elevated blood pressure and chest discomfort. The patient states that he went to the [employer] and prior to that he took his blood pressure. It was 155 systolic. While walking down the aisle he felt like he was very slow and started to have some heavy breathing. He then developed chest pain at the same time which she describes as a burning sensation in the middle of his chest. It lasted about a minute. He did not feel well for approximately an hour and had 2 episodes of chest pain during that time. Currently he feels fine and is asymptomatic. When he got home from the store he checked his blood pressure and it was over 200 systolic so he presented here. He denies any leg swelling or pain. He did not feel lightheaded. He denies any cough or cold symptoms or fever or known exposure to COVID-19. He has been taking his medications as prescribed. He was here in August for similar elevated blood pressure and they increased his hydrochlorothiazide. He does state that he had a mild headache earlier but it is gone now. He has a tendency to have headaches with elevated blood pressures. Home Medications Home Medications Medication Instructions Recorded Confirmed Type acetaminophen [Tylenol Extra 1,000 mg PO Q6H PRN 07/08/19 11/16/19 History Strength] ezetimibe [Zetia] 10 mg PO QAM 07/08/19 11/16/19 History warfarin [Coumadin] 5 mg PO 5XWK 07/08/19 11/16/19 History warfarin [Coumadin] 7.5 mg PO 2XWK 07/08/19 11/16/19 History lorazepam [Ativan] 0.5 mg PO BID PRN 09/27/19 11/16/19 History hydrochlorothiazide 25 mg PO DAILY 11/16/19 11/16/19 History losartan 25 mg PO DAILY 11/16/19 11/16/19 History Allergies Allergy/AdvReac Type Severity Reaction Status Date / Time ibuprofen Allergy Intermediate Swelling Verified 11/16/19 22:18 of Lip/Tongue/Throat Past Med/Surg History Medical History History of TIA (transient ischemic attack) HTN (hypertension) No significant medical problems 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 and A total of 10 systems reviewed and were otherwise negative Physical Exam Vital Signs Vital Signs - 24 hr 11/16/19 21:51 11/16/19 22:44 11/16/19 23:00 Temperature 36.5 C Temperature Source Oral Pulse Rate 69 69 Pulse Rate [Bilateral] 60 Pulse Rhythm [Bilateral] Regular Pulse Strength [Bilateral] Normal Respiratory Rate 18 21 18 Respiratory Effort / Characteristics Non-Labored Spontaneous Non-Labored Spontaneous Respiratory Depth Normal Normal Respiratory Pattern Regular Blood Pressure 194/76 H 196/85 H Blood Pressure [Right Arm] 150/53 H Blood Pressure Mean 115 93 Blood Pressure Mean [Right Arm] 85 Blood Pressure Position [Right Arm] Lying Pulse Oximetry 97 98 Oxygen Delivery Method Room Air Room Air Sepsis Recent Fever Within 48 Hours No Sepsis New/Unexplained Change in Mental Status No Sepsis Action Taken by Nursing No Action Required 11/16/19 23:01 11/16/19 23:30 11/17/19 00:01 Temperature Temperature Source Pulse Rate 60 67 67 Pulse Rate [Bilateral] Pulse Rhythm [Bilateral] Pulse Strength [Bilateral] Respiratory Rate 19 16 20 Respiratory Effort / Characteristics Respiratory Depth Respiratory Pattern Blood Pressure 150/53 H 128/74 165/100 H Blood Pressure [Right Arm] Blood Pressure Mean 74 92 137 Blood Pressure Mean [Right Arm] Blood Pressure Position [Right Arm] Pulse Oximetry 97 Oxygen Delivery Method Room Air Sepsis Recent Fever Within 48 Hours Sepsis New/Unexplained Change in Mental Status Sepsis Action Taken by Nursing 11/17/19 01:00 Temperature Temperature Source Pulse Rate 53 L Pulse Rate [Bilateral] Pulse Rhythm [Bilateral] Pulse Strength [Bilateral] Respiratory Rate 18 Respiratory Effort / Characteristics Respiratory Depth Respiratory Pattern Blood Pressure 144/77 H Blood Pressure [Right Arm] Blood Pressure Mean 122 Blood Pressure Mean [Right Arm] Blood Pressure Position [Right Arm] Pulse Oximetry 97 Oxygen Delivery Method Room Air Sepsis Recent Fever Within 48 Hours Sepsis New/Unexplained Change in Mental Status Sepsis Action Taken by Nursing Constitutional: Vital signs reviewed. Eyes: Pupils are equal round reactive to light. Conjunctiva are noninjected. ENT: Pharynx is clear without erythema or exudate. Mucous membranes are moist. Neck supple without meningeal signs. Respiratory: Clear to auscultation bilaterally. Breath sounds are equal bilaterally. Cardiovascular: Regular rate and rhythm. No rubs or gallops. GI: Soft, nondistended and nontender. Bowel sounds are present. Musculoskeletal: No peripheral edema. No lower extremity tenderness. Integumentary: No cyanosis. or jaundice. Neurological: The patient is awake and alert. No focal deficits. Psychiatric: Normal affect. Not anxious appearing. Medical Decision Making Differential Diagnosis Poorly controlled hypertension, unstable angina, MA, GERD, pleurisy Medical Records Attestation: I reviewed the patient's medical records. Patient was seen here for elevated blood pressure in August. He had a work-up. He was discharged home. Home Medications Current Medication List: was personally reviewed by me Laboratory Data Attestation: I reviewed the patient's lab results. Result diagrams: 11/16/19 22:50 11/16/19 22:50 Lab Results 11/16/19 11/16/19 11/16/19 Range/Units 22:50 22:50 22:50 WBC 5.69 (4.8-10.8) K/uL RBC 5.16 (4.7-6.1) M/uL Hgb 14.1 (14.0-18.0) g/dL Hct 42.0 (42-52) % MCV 81.4 (80-100) fL MCH 27.3 (25-34) pg MCHC 33.6 (32-36) g/dL RDW Std Deviation 42.7 (36.4-46.3) fL RDW Coeff of Stephanie 14.4 (11.5-14.5) % Plt Count 224 (130-400) K/uL MPV 10.1 (7.4-10.4) fL Immature Gran % (Auto) 0.0 % Neut % (Auto) 54.9 % Lymph % (Auto) 24.4 % [place] % (Auto) 9.0 % Eos % (Auto) 10.5 % Baso % (Auto) 1.2 % Immature Gran # (Auto) 0.00 (0.00-0.02) K/uL Neut # (Auto) 3.12 (1.4-6.5) K/uL Lymph # (Auto) 1.39 (1.2-3.4) K/uL [place] # (Auto) 0.51 (0.11-0.59) K/uL Eos # (Auto) 0.60 H (0-0.5) K/uL Baso # (Auto) 0.07 (0-0.2) K/uL PT 39.8 H (9.0-12.0) Seconds INR 4.1 H (0.9-1.1) APTT 51.4 H* (21.0-31.0) Seconds PTT Ratio 1.8 Sodium 139 (136-145) mmol/L Potassium 4.0 (3.5-5.1) mmol/L Chloride 103 (98-107) mmol/L Carbon Dioxide 29 (21-32) mmol/L Anion Gap 7.0 (3-11) BUN 29 H (7-18) mg/dl Creatinine 1.44 H (0.6-1.4) mg/dl Est Cr Clr Drug Dosing 48.5 ml/min Est GFR ( Amer) 55.8 Est GFR (Non-Af Amer) 48.2 BUN/Creatinine Ratio 19.8 (10-20) Glucose 94 (70-99) mg/dl Calcium 9.0 (8.5-10.1) mg/dl Total Bilirubin 0.5 (0.2-1) mg/dl AST 31 (15-37) U/L ALT 33 (12-78) U/L Alkaline Phosphatase 60 (45-117) U/L Troponin I < 0.015 (0-0.045) ng/ml Total Protein 7.5 (6.4-8.2) gm/dl Albumin 3.8 (3.4-5.0) gm/dl Globulin 3.7 (2.5-4.0) gm/dl Albumin/Globulin Ratio 1.0 (0.9-2) Imaging Data Attestation: I personally reviewed and interpreted this imaging study as follows: My Impression: Chest x-ray per my interpretation shows no acute cardiopulmonary process. No change from prior x-ray from August. ECG Data Attestation: I personally reviewed and interpreted this ECG as follows: Indication: + chest pain Rate (beats per minute): 61 Rhythm: + normal sinus ECG Intervals/blocks: + First degree AV block ECG ST segments: + repolarization abnormalities (J-point elevation in the leads V1 to V3) ECG Findings: no PVCs Comparison ECG Date: from (09/27/2019) Change: no significant change Blood Pressure Blood Pressure Findings: Elevated blood pressure Blood Pressure Disposition: Referred to patients primary care provider NORBERT Narrative I did evaluate the patient as noted above. Patient is presenting with an episode of chest discomfort and shortness of breath. He states that he was sweating as well but not diaphoretic. IV access was established. I did place an order for continuous cardiac monitoring. The monitor showed normal sinus rhythm with a rate of 65. No dysrhythmias noted. I did order and personally review the patient's 12-lead EKG as described above. He has no acute ischemic changes. He has no change from his prior EKG from August. I did order and personally reviewed the images of the patient's chest x-ray as described above. There is no evidence of acute cardiopulmonary abnormality. I did order and review the patient's blood work as noted in the electronic medical record. CBC is unremarkable. His creatinine is slightly elevated 1.4. Troponin is negative. I did order nitroglycerin paste for the patient but the nurse stated that his blood pressure came down to 128/74 spontaneously and so she did not give him the nitroglycerin. I did reassess him. He states he is feeling much better at this time. He is asymptomatic currently. I did review his test results with him. He has a heart score of 4 and so I did recommend hospitalization for further care and evaluation. He will need repeat cardiac biomarkers. I did discuss the case with the hospitalist and caseworker. Impression & Plan Chest pain, Supratherapeutic INR, Elevated blood pressure reading, Elevated serum creatinine Discharge Plan Visit Data Chief Complaint: Hypertension Stated Complaint: HYPERTENSION, SWOLLEN FEET ED Provider: Kamari Waters Discharge Problem: Chest pain, Supratherapeutic INR, Elevated blood pressure reading, Elevated serum creatinine Patient Disposition: Being Evaluated by Hospitalist Condition: Good Forms Stand Alone Forms: [facility] Prescriptions Prescriptions: No Action warfarin [Coumadin] 5 mg tablet 7.5 mg PO 2XWK RF: 0 warfarin [Coumadin] 5 mg tablet 5 mg PO 5XWK RF: 0 ezetimibe [Zetia] 10 mg tablet 10 mg PO QAM RF: 0 acetaminophen [Tylenol Extra Strength] 500 mg Tablet 1,000 mg PO Q6H PRN (Reason: Pain) RF: 0 lorazepam [Ativan] 0.5 mg tablet 0.5 mg PO BID PRN (Reason: Anxiety) RF: 0 losartan 25 mg tablet 25 mg PO DAILY RF: 0 hydrochlorothiazide 25 mg tablet 25 mg PO DAILY RF: 0 Referrals Referrals: Haroldo Infante MD [Primary Care Provider] - Discharge Problem: Chest pain Qualifiers: Chest pain type: unspecified Qualified Code(s): R07.9 - Chest pain, unspecified
[2019-11-17] MEDS ORDERED: ACETAMINOPHEN 325 MG TAB PO PRN (04:27)
[2019-11-17] MEDS ORDERED: ONDANSETRON INJ 2 MG/ML 2 ML VIAL IV PRN (04:27)
[2019-11-17] MEDS ORDERED: POLYETHYLENE (MIRALAX) 17 GM PACK PO PRN (04:27)
[2019-11-17] MEDS ORDERED: NITROGLYCERIN SL 0.4 MG/TAB TAB SL PRN (04:27)
[2019-11-17] MEDS ORDERED: LORazepam 0.5 MG TAB PO PRN (04:27)
--- NOTE | 2019-11-17 06:08 | History and Physical Report ---
DATE OF ADMISSION: 11/17/2019 CHIEF COMPLAINT: Chest pain. HISTORY OF PRESENT ILLNESS: This is a 73-year-old male with past medical history significant for hyperlipidemia, chronic sinusitis, mitral valve disorder, aortic valve insufficiency, thoracic aortic aneurysm, history of hypertension, rheumatic heart disease, aortic stenosis, history of TIA, who lives with his , presents with chest pain. The patient was shopping when he noticed chest pressure about 2-3 in severity, no radiation, associated with some shortness of breath, some sweating and nausea and dizziness and when he went home and checked his blood pressure, it was very high and he came to the ER. Currently, patient was placed on nitro paste and pain is almost resolved. Blood pressure is running okay in the ER. Denies any other complaints. No cough, no fever, no chills, no blurred vision, no earache, somewhat hard of hearing. No abdominal pain. Normal bowel and bladder movements. No blood in the stools, no black stools, no hematuria. Currently resting comfortably and hemodynamically stable. ALLERGIES: IBUPROFEN, ATORVASTATIN. PAST MEDICAL HISTORY: As mentioned above. PAST SURGICAL HISTORY: Brain surgery, left heart catheterization, colonoscopy, incision of the anal sphincter, maxillary sinus endoscopy. MEDICATIONS: The patient is on losartan 25 mg p.o. daily, hydrochlorothiazide 25 mg p.o. daily, Coumadin 7.5 mg on Sundays and and 5 mg on rest of the days, Zetia 10 mg p.o. daily. FAMILY HISTORY: Significant for father has of [place] at age 54. Sister of [place] at age of 63. Mother at age of 84. SOCIAL HISTORY: , lives with . Smokes 1-2 packs a day. Alcohol once or twice a month. No drug use. REVIEW OF SYMPTOMS: As per HPI. Rest of review of systems negative. PHYSICAL EXAMINATION: GENERAL: The patient is of moderate build, not in acute distress. VITAL SIGNS: Temperature 36.5, pulse 55, respiratory rate 17, blood pressure 137/70, oxygen 97% room air. HEENT: No pallor, no icterus. Pupils equal, round, reactive to light. NECK: No JVD, no neck masses. CARDIOVASCULAR: S1, S2 heard, regular rate and rhythm, no murmur, no gallop. RESPIRATORY SYSTEM: Normal AP diameter. No accessory muscle use. No wheezing, no crackles. ABDOMEN: Soft, bowel sounds present, nontender. No distention. CENTRAL NERVOUS SYSTEM: Cranial nerves II-XII grossly intact. Nonfocal. EXTREMITIES: No edema, no erythema. LABORATORY DATA: WBC 5.6, hemoglobin 14.1, hematocrit 42, platelets 224. PT 39.8, INR 4.1, APTT 51.4. Sodium 139, potassium 4, chloride 103, bicarbonate 29, BUN 29, creatinine 1.44, serum glucose 94, calcium 9, total bilirubin 0.5, AST 31, ALT 33, alkaline phosphatase 60, troponin I less than 0.015. Chest x-ray: No acute findings. EKG: Sinus rhythm with first degree AV block at a rate of 61, no significant change was found. ASSESSMENT AND PLAN: This is a 73-year-old male who presents with chest pain. 1. Chest pain, rule out acute coronary syndrome. Risk factors of age, hypertension, hyperlipidemia, family history. Initial workup is negative, history of rheumatic heart disease, severe aortic insufficiency, moderate aortic stenosis, moderate mitral stenosis, evidence of mild pulmonary hypertension.. Hx of Nonobstructive coronary artery disease on cardiac catheterization in 08/2011 and 06/2019. Will follow serial CE and echo and cardio consult in am. 2. Hypertension. Continue his hydrochlorothiazide and losartan. Monitor blood pressure closely. It was running high at home. 3. History of transient ischemic attack, questionable paroxysmal atrial fibrillation on Coumadin. INR is supratherapeutic. We will hold Coumadin. 4. History of mild ascending thoracic aortic enlargement. 5. Hyperlipidemia, statin, intolerance on Zetia. 6. Deep venous thrombosis prophylaxis. INR is supratherapeutic. DISPOSITION: Observation in tele floor. Expect discharge home and follow with his family doctor. Level 1 full code. MTDD
[2019-11-17 07:01] LABS: INR 3.8 (0.9-1.1)
[2019-11-17 07:18] LABS: Troponin I 0.022 ng/ml (0-0.045)
--- NOTE | 2019-11-17 07:53 | XRay Report ---
XR chest 1V portable CLINICAL HISTORY: 73 years-old Male presenting with Chest Pain, hypertension. TECHNIQUE: Portable upright AP view of the chest was obtained. COMPARISON: 09/27/2019. FINDINGS: Atherosclerosis of the aortic arch. Cardiac silhouette mildly enlarged. No focal opacity. No large ef fusion or pneumothorax. Degenerative changes of the thoracic spine. Upper abdomen normal. IMPRESSION: 1. Mild cardiomegaly. No other convincing evidence of acute cardiopulmonary disease. ACT 112: Negative or not required by law. Electronically signed by: Donny Dowell M.D. 11/17/2019 7:52 AM
[2019-11-17] MEDS ORDERED: EZETIMIBE 10 MG TABLET PO SCH (09:00)
[2019-11-17] MEDS ORDERED: LOSARTAN POTASSIUM 25 MG TAB PO SCH (09:00)
[2019-11-17] MEDS ORDERED: hydroCHLOROthiazide 25 MG TAB PO SCH (09:00)
[2019-11-17] MEDS ORDERED: ASPIRIN 81 MG ECTAB PO SCH (09:00)
[2019-11-17] MEDS ORDERED: AMLODIPINE BESYLATE 5 MG TAB PO SCH (11:15)
--- NOTE | 2019-11-17 11:28 | Cardiology Consultation ---
Date of Consultation November 17, 2019 Assessment & Plan (1) Chest pain: The patient is recently followed closely with Dr. 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 Due to concerns of progression of his valvular heart disease as well as chest discomfort he underwent a cardiac catheterization including hemodynamic assessment with right heart catheterization performed on 07/12/2019 revealing mild nonobstructive CAD. Hemodynamics by cardiac catheterization are consistent with moderate aortic valve stenosis and moderate mitral stenosis. Severe aortic valve regurgitation has been noted on previous transthoracic echocardiogram. Went on to have a stress echocardiogram performed in July 2019 for objective assessment of his exercise tolerance, and his exercise capacity had declined compared to a prior study compared to several years ago having achieved 11 minutes in 2007 as compared to 6 minutes and 31 seconds on the most present study. Surgical intervention for his valve disease have been discussed with the patient, but he favored ongoing observation at that time. At present, his blood pressure has been above goal. He does have a history of anxiety as well. His echocardiogram performed today reveals stable findings. I recommend ongoing observation and close follow-up of his valvular heart disease. I think his recent cardiac catheterization results are reassuring, and I do not think his symptoms are healthcare sales representative of an acute coronary syndrome at present. His baseline heart rate is in the 50s, and therefore I do not think there is room for adding a beta-vikash. Given that his creatinine is slightly above his typical baseline, I do not think it is hoover for us to increase his losartan at present, and therefore recommend addition of low-dose amlodipine, and we will have to cautiously monitor him in terms of edema related side effects. Is INR has been above goal on presentation, and remains above goal at 3.8 today. His typical Coumadin regimen is 7.5 mg on Sundays and and 5 mg the remaining days of the week. I would hold his Coumadin today, and have him start back with his 7.5 mg dose tomorrow to follow with his routine regimen. He is stable from a cardiac perspective for discharge. He already has a follow- up visit tentatively scheduled with cardiology on 12/13/2019 and he should keep this appointment. Would recommend a repeat chemistry panel be performed within several days of discharge to ensure that his creatinine is stable on his current losartan dose. History of Present Illness Attending Physician: Neil Srinivasan MD History of Present Illness Dwayne Anand is a 73 year old male seen in cardiology consultation per the request of Dr Marin for the evaluation of chest pain and hypertension. The patient's primary locator specialist is Dr Guerrero of our practice with whom the patient has followed with closely recently. The patient describes some degree of stress at home with concerns of the COVID- 19 crisis. 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 Yesterday he fell while at work, however felt tired when he came home. He went to the grocery store, and for a brief transient few seconds, he felt chest discomfort while walking. He took his blood pressure when he got home, and his systolic blood blood pressure was in the range of 198 mmHg. Typically recently it has been in the 130-150 millimeters Hg range, and closer to 130 mm Hg when he was off of work. His blood pressure was elevated when he came to the hospital overnight. He has had no additional chest discomfort. And with observation, most recent blood pressure has been 158/69. His creatinine is a little bit above his typical baseline with a reading of 1.44 this morning. EKG performed on arrival last evening at 2242 hrs. revealed sinus rhythm at 61 bpm with first-degree AV block, no significant ST changes. Troponin x3 has been within normal limits. Allergies Allergy/AdvReac Type Severity Reaction Status Date / Time ibuprofen Allergy Intermediate Swelling Verified 11/16/19 22:18 of Lip/Tongue/Throat Home Medications Home Medications Medication Instructions Recorded Confirmed Type acetaminophen [Tylenol Extra 1,000 mg PO Q6H PRN 07/08/19 11/16/19 History Strength] ezetimibe [Zetia] 10 mg PO QAM 07/08/19 11/16/19 History warfarin [Coumadin] 5 mg PO 5XWK 07/08/19 11/16/19 History warfarin [Coumadin] 7.5 mg PO 2XWK 07/08/19 11/16/19 History lorazepam [Ativan] 0.5 mg PO BID PRN 09/27/19 11/16/19 History hydrochlorothiazide 25 mg PO DAILY 11/16/19 11/16/19 History losartan 25 mg PO DAILY 11/16/19 11/16/19 History Patient History Medical History History of TIA (transient ischemic attack) HTN (hypertension) No significant medical problems 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 Surgical History S/P cardiac catheterization Social History Preferred Language: Yoruba Communication Ability: Effective 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 Beliefs That Will Affect Care: None Current Living Situation: Spouse Other Information That Helps Us Care for You: No Feels Safe at Home: Yes Safety Concerns: Feels Safe At This Time Smoking Status: Current every day smoker Tobacco Type: cigars ; Do You Dip or Chew Tobacco: No ; Tobacco Cessation Education Requested by Patient: No Hx Alcohol Use: Yes Alcohol type: hard liquor Hx Substance Use: No Review of Systems Review of Systems: All systems reviewed & are unremarkable except as noted in HPI & below Physical Exam Physical Exam: Temp Pulse Resp BP Pulse Ox 36.8 C 64 18 158/69 H 96 11/17/19 07:41 11/17/19 07:41 11/17/19 07:41 11/17/19 07:41 11/17/19 07:41 Respiratory: normal respiratory effort, lungs clear to auscultation Cardiovascular: Rate/Rhythm: regular rhythm Heart Sounds: + murmur (1/6 systolic murmur) Vessels: no JVD Extremities: no edema Gastrointestinal (Abdomen): normal bowel sounds, soft, nontender, no hepatosplenomegaly Neurologic: PERRL, EOMI, accommodation nl, no face palsy, no dysarthria Results & Data ([facility]) Vital Signs (Past 12 Hours) Vital Signs Temp Pulse Pulse Resp BP BP Pulse Ox 11/17/19 07:41 36.8 C 64 18 158/69 H 96 11/17/19 04:09 36.4 C L 63 18 164/69 H 96 11/17/19 03:01 63 18 152/86 H 96 11/17/19 01:30 55 L 17 137/70 11/17/19 01:00 53 L 18 144/77 H 97 11/17/19 00:01 67 20 165/100 H 11/16/19 23:30 67 16 128/74 97 Laboratory Results Cardiac Enzymes 11/16/19 11/17/19 Range/Units 22:50 06:00 AST 31 (15-37) U/L Troponin I < 0.015 0.022 (0-0.045) ng/ml Coagulation 11/16/19 11/17/19 Range/Units 22:50 06:00 PT 39.8 H 37.0 H (9.0-12.0) Seconds APTT 51.4 H* (21.0-31.0) Seconds Lipids 11/17/19 Range/Units 06:00 Triglycerides 286 H (0-150) mg/dl Cholesterol 182 (0-200) mg/dl HDL Cholesterol 30 mg/dl Cholesterol/HDL Ratio 6 CBC 11/16/19 Range/Units 22:50 WBC 5.69 (4.8-10.8) K/uL RBC 5.16 (4.7-6.1) M/uL Hgb 14.1 (14.0-18.0) g/dL Hct 42.0 (42-52) % Plt Count 224 (130-400) K/uL Neut # (Auto) 3.12 (1.4-6.5) K/uL Lymph # (Auto) 1.39 (1.2-3.4) K/uL [place] # (Auto) 0.51 (0.11-0.59) K/uL Eos # (Auto) 0.60 H (0-0.5) K/uL Baso # (Auto) 0.07 (0-0.2) K/uL Comprehensive Metabolic Panel 11/16/19 Range/Units 22:50 Sodium 139 (136-145) mmol/L Potassium 4.0 (3.5-5.1) mmol/L Chloride 103 (98-107) mmol/L Carbon Dioxide 29 (21-32) mmol/L BUN 29 H (7-18) mg/dl Creatinine 1.44 H (0.6-1.4) mg/dl Glucose 94 (70-99) mg/dl Calcium 9.0 (8.5-10.1) mg/dl AST 31 (15-37) U/L ALT 33 (12-78) U/L Alkaline Phosphatase 60 (45-117) U/L Total Protein 7.5 (6.4-8.2) gm/dl Albumin 3.8 (3.4-5.0) gm/dl Intake and Output 11/16/19 11/17/19 11/17/19 22:59 06:59 14:59 Intake Total 0 / 0 Balance 0 / 0 Intake: Oral 0 / 0 Other: Other Intake Source npo Weight 85.8 kg 83.6 kg Diagnostic Findings Telemetry reveals sinus rhythm in the 50s. No significant arrhythmias. Medications Administered Current Inpatient Medications Acetaminophen (Tylenol) 650 mg PO Q4H PRN PRN Reason: Pain or Fever Stop: 12/17/19 04:26 Amlodipine Besylate (Norvasc) 2.5 mg PO QAM [facility] Stop: 12/17/19 11:14 Aspirin (Ecotrin Ectab) 81 mg PO QAM [facility] Stop: 12/17/19 08:59 Last Admin: 11/17/19 08:16 Dose: Not Given Documented by: Ezetimibe (Zetia) 10 mg PO QAM [facility] Stop: 12/17/19 08:59 Last Admin: 11/17/19 08:17 Dose: 10 mg Documented by: Hydrochlorothiazide (Hctz) 25 mg PO DAILY [facility] Stop: 12/17/19 08:59 Last Admin: 11/17/19 08:16 Dose: 25 mg Documented by: Lorazepam (Ativan) 0.5 mg PO BID PRN PRN Reason: Anxiety Stop: 12/17/19 04:26 Losartan Potassium (Cozaar) 25 mg PO DAILY [facility] Stop: 12/17/19 08:59 Last Admin: 11/17/19 08:17 Dose: 25 mg Documented by: Nitroglycerin (Nitrostat) 0.4 mg SL UD PRN PRN Reason: Chest Pain Stop: 12/17/19 04:26 Ondansetron HCl (Zofran) 4 mg IV Q6H PRN PRN Reason: Nausea Stop: 12/17/19 04:26 Polyethylene Glycol (Miralax Powder Packet) 17 gm PO DAILY PRN PRN Reason: Constipation Stop: 12/17/19 04:26 (1) Chest pain Chest pain type: unspecified Qualified Code(s): R07.9 - Chest pain, unspecified
--- NOTE | 2019-11-17 14:36 | Electrocardiogram Report ---
Test Reason : Blood Pressure : / mmHG Vent. Rate : 061 BPM Atrial Rate : 061 BPM P-R Int : 254 ms QRS Dur : 110 ms QT Int : 444 ms P-R-T Axes : 047 -19 049 degrees QTc Int : 446 ms Sinus rhythm with 1st degree A-V block Otherwise normal ECG When compared with ECG of 27-SEP-2019 13:03, No significant change was found Confirmed by Kingsley Lehman ([id number]) on 11/17/2019 2:36:13 PM Referred By: REFERRED SELF Confirmed By:Manuelito Lehman
--- NOTE | 2019-11-17 16:24 | Discharge Summary ---
Date of Service November 17, 2019 Admission HPI Per Admitting Provider This is a 73-year-old male with past medical history significant for hyperlipidemia, chronic sinusitis, mitral valve disorder, aortic valve insufficiency, thoracic aortic aneurysm, history of hypertension, rheumatic heart disease, aortic stenosis, history of TIA, who lives with his , presents with chest pain. The patient was shopping when he noticed chest pressure about 2-3 in severity, no radiation, associated with some shortness of breath, some sweating and nausea and dizziness and when he went home and checked his blood pressure, it was very high and he came to the ER. Currently, patient was placed on nitro paste and pain is almost resolved. Blood pressure is running okay in the ER. Denies any other complaints. No cough, no fever, no chills, no blurred vision, no earache, somewhat hard of hearing. No abdominal pain. Normal bowel and bladder movements. No blood in the stools, no black stools, no hematuria. Currently resting comfortably and hemodynamically stable. Admission Exam Per Admitting Provider GENERAL: The patient is of moderate build, not in acute distress. VITAL SIGNS: Temperature 36.5, pulse 55, respiratory rate 17, blood pressure 137/70, oxygen 97% room air. HEENT: No pallor, no icterus. Pupils equal, round, reactive to light. NECK: No JVD, no neck masses. CARDIOVASCULAR: S1, S2 heard, regular rate and rhythm, no murmur, no gallop. RESPIRATORY SYSTEM: Normal AP diameter. No accessory muscle use. No wheezing, no crackles. ABDOMEN: Soft, bowel sounds present, nontender. No distention. CENTRAL NERVOUS SYSTEM: Cranial nerves II-XII grossly intact. Nonfocal. EXTREMITIES: No edema, no erythema. Principal Diagnosis Chest pain Hypertension Discharge Exam GENERAL: Elderly male sitting up in bed, in no acute distress HEENT: Normocephalic, atraumatic, no pallor, no icterus. Pupils equal, round, reactive to light. NECK: No JVD, no neck masses. CARDIOVASCULAR: S1, S2 heard, regular rate and rhythm, + soft systolic murmur RESPIRATORY SYSTEM: Normal AP diameter. No accessory muscle use. No wheezing, no crackles. ABDOMEN: Soft, bowel sounds present, nontender. No distention. CENTRAL NERVOUS SYSTEM: Alert and oriented x3, no facial asymmetry, speech fluent, cranial nerves II-XII grossly intact. Moves extremities spontaneously. EXTREMITIES: No edema, no erythema. SKIN: Warm, dry, well perfused PSYCH: euthymic affect Discharge Data Allergies Allergy/AdvReac Type Severity Reaction Status Date / Time ibuprofen Allergy Intermediate Swelling Verified 11/16/19 22:18 of Lip/Tongue/Throat Consultations 11/17/19 00:06 ED Decision to Admit Stat 11/17/19 04:27 Consult Case Management - Discharge Planning Routine 11/17/19 08:00 Consult Cardiology Routine Hospital Course (1) Chest pain: (2) HTN (hypertension): 73-year-old male who presents with chest pain. 1. Chest pain, rule out acute coronary syndrome. Risk factors of age,hypertension, hyperlipidemia, family history. Initial workup is negative -no ischemic changes on EKG, troponin negative History of rheumatic heart disease, severe aortic insufficiency, moderate aortic stenosis, moderate mitral stenosis, evidence of mild pulmonary hypertension. Hx of Nonobstructive coronary artery disease on cardiac catheterization in 08/2011 and 06/2019. Echocardiogram obtained, and essentially without any changes from previous. Cardiology consulted, recommend to start amlodipine, for blood pressure control. Amlodipine 2.5 mg sent to patient's pharmacy. Recommend to monitor blood pressure as outpatient. Recommend to follow-up with cardiology in November as previously scheduled. 2. Hypertension. Continue his hydrochlorothiazide and losartan. As above, patient started on amlodipine 2.5 mg daily. Continue to monitor as outpatient. 3. Hyperlipidemia, statin, intolerance on Zetia. 4. History of mild ascending thoracic aortic enlargement. (3) Elevated serum creatinine: Patient on losartan, recommend to recheck BMP as outpatient in 1 week (4) Supratherapeutic INR: History of transient ischemic attack, questionable paroxysmal atrial fibrillation on Coumadin. INR is supratherapeutic. Current INR 3.8 Hold Coumadin today, November 17, 2019, recommend to restart tomorrow November 17 DVT prophylaxis. INR is supratherapeutic. Hold Coumadin today, restart tomorrow. Total Time Total Time Spent Total Time Spent (In Minutes): 40 Total Time Includes: Examination of the Patient, Discharge Planning, Medication Reconciliation and Communication With Other Providers Discharge Plan Discharge Items Patient Disposition: Home - Self-Care Reason For Visit: CHEST PAIN Discharge Diagnosis: Chest pain Hypertension Condition on Discharge: Good Activity: Per Instructions section Non-emergency contact: Primary Care Provider and Poultry Service Technician Call non-emergency contact if: you have any medication questions and your symptoms worsen Follow-up/Referrals: Haroldo Infante MD [Primary Care Provider] - 11/23/19 11:20 am (11/23/2019 11:20 AM Provider DO [facility] ) Diet: Heart Healthy Addtl Attending Provider Instructions: During your hospital stay, you had echocardiogram done which was essentially unchanged from the previous one. Cardiology was consulted and recommended to start you on blood pressure medication, amlodipine 2.5 mg daily. This medication was sent to your pharmacy, please take it daily. Recommend to check your blood pressure daily and keep a log of these numbers. Make sure to let your primary care doctor and/ or your critical care nurse practitioner know about your blood pressure so the medication can be further adjusted. Follow-up with your primary care doctor in 1 week. At that time recommend to obtain blood work, BMP. Your INR was elevated at 3.8, recommend to hold your Coumadin today. Restart taking your Coumadin tomorrow. Keep your appointment with cardiology in November (next month). Pending Studies at Discharge: No Stand-Alone Forms: My [facility] [employer], Smoking Cessation Medications and DC Order Prescriptions: New amlodipine [Norvasc] 5 mg Tablet 2.5 mg PO QAM 30 Days Qty: 15 RF: 0 Continued warfarin [Coumadin] 5 mg tablet 7.5 mg PO 2XWK RF: 0 warfarin [Coumadin] 5 mg tablet 5 mg PO 5XWK RF: 0 ezetimibe [Zetia] 10 mg tablet 10 mg PO QAM RF: 0 acetaminophen [Tylenol Extra Strength] 500 mg Tablet 1,000 mg PO Q6H PRN (Reason: Pain) RF: 0 lorazepam [Ativan] 0.5 mg tablet 0.5 mg PO BID PRN (Reason: Anxiety) RF: 0 losartan 25 mg tablet 25 mg PO DAILY RF: 0 hydrochlorothiazide 25 mg tablet 25 mg PO DAILY RF: 0 Discharge Orders: Discharge Order (Routine); Ordered 11/17/19 Ordered By: Neil Berg/Other Patient Handouts: Anxiety Body Response, Amlodipine, First Aid Bleeding, Stroke Prevent Another Caregiver Admission Data Admit Date/Time: 11/17/19 02:55 Attending Provider: Neil Srinivasan Admit Provider: Ryan Marin Primary Care Provider: Haroldo Infante Other Providers: Ryan Marin ; Jaspal Tabares ; Brian Obrien ; Shashi Arriaga ; Kamari Guerrero ; Cas Dangelo ; Wild Rubin ; Kayla Milner ; Maeve Morillo ; Rock Mitchell ; Renetta Leiva Other Interventions: Discharge Summary Assessment (RN) Last Done: 11/17/19 16:27
== END 2019-11-17 17:39 | disposition home or self-care (01) ==
LOC: ED 21:48 → 2S 21:48 → SUATTDRO 11-17 02:55 → 2S 11-17 03:45